=== PATIENT | male | born 1985 | race Hispanic/Latino ===

== ENCOUNTER 2018-10-10 19:00 | Emergency (ER) | payer OTHER, BC ==
[2018-10-10] MEDS: NAPROXEN 250 MG TAB PO (19:41)
[2018-10-10] MEDS: METHOCARBAMOL 750 MG TAB PO (19:41)
== END 2018-10-10 19:49 | disposition home or self-care (01) ==
LOC: M ED 19:00
DX: S76.211A Strain of adductor muscle, fascia and tendon of right thigh, initial encounter (principal); W01.0XXA Fall on same level from slipping, tripping and stumbling without subsequent striking against object, initial encounter; Y92.410 Unspecified street and highway as the place of occurrence of the external cause; J45.909 Unspecified asthma, uncomplicated; F17.210 Nicotine dependence, cigarettes, uncomplicated
CPT/HCPCS: 99282

== ENCOUNTER 2018-10-18 13:27 | Emergency (ER) | payer OTHER, BC | END 2018-10-18 14:19 | disposition home or self-care (01) | LOC: M ED 13:27 | DX: S76.111A Strain of right quadriceps muscle, fascia and tendon, initial encounter (principal); X58.XXXA Exposure to other specified factors, initial encounter; Y92.89 Other specified places as the place of occurrence of the external cause; Z79.1 Long term (current) use of non-steroidal anti-inflammatories (NSAID) | CPT/HCPCS: 99282 ==

== ENCOUNTER 2018-11-20 08:10 | Emergency (ER) | payer BC, OTHER ==
[~2018-11-20] VITALS: Ht 177.8 cm; Wt 113.6 kg
[~2018-11-20 08:10] MED LIST: ALBUTEROL INH; Cipro PO; Flagyl PO; Motrin PO; NAPR-50 PO; Percocet PO; ROBA500T PO
[2018-11-20] MEDS ORDERED: KETOROLAC 60 MG/2 ML VIAL (J1885) IM ONE (09:00)
--- NOTE | 2018-11-20 09:41 | REP ---
Right hip: Two views. History: Right groin pain after slipping on the ice. Findings: AP and frog-leg views of the right hip demonstrate smooth rounded femoral head and intact hip joint space. Periarticular soft tissues are unremarkable. No fractures seen. Right SI joint is unremarkable. Impression: Negative views of the right hip. Electronically Signed by Darryl Alexandre MD 11/20/2018 09:32 A
[2018-11-20] MEDS ORDERED: NAPR-50 PO (09:48)
[2018-11-20] MEDS ORDERED: ROBA500T PO (09:49)
[2018-11-20 09:56] VITALS: BP 142/83
== END 2018-11-20 09:59 | disposition home or self-care (01) ==
LOC: M ED 08:10
DX: S76.811A Strain of other specified muscles, fascia and tendons at thigh level, right thigh, initial encounter (principal); W00.0XXA Fall on same level due to ice and snow, initial encounter; Y92.118 Other place in children's home and orphanage as the place of occurrence of the external cause; Y99.0 Civilian activity done for income or pay
CPT/HCPCS: 73502; 96372; 99283; J1885

== ENCOUNTER → 2018-11-24 | Outpatient (REF) | payer BC ==
[2018-11-24 12:29] LABS: BASO # 0.1 10^3/uL (0.0-0.2); EOS # 0.3 10^3/uL (0.0-0.50); EOS % 4.1 % (0.0-3.0); HEMATOCRIT 50.2 % (42.0-52.0); HEMOGLOBIN 16.9 g/dl (13.5-17.5); LYMPH # 2.1 10^3/uL (1.5-4.5); LYMPH % 30.4 % (24.0-44.0); MEAN CORPUSCULAR HEMOGLOBIN 30.4 pg (27.0-33.0); MEAN CORPUSCULAR HGB CONC 33.7 g/dl (32.0-36.5); MEAN CORPUSCULAR VOLUME 90.3 fl (80.0-96.0); MONO # 0.6 10^3/uL (0.0-0.8); MONO % 8.4 % (0.0-5.0); NEUTROPHILS # 3.9 10^3/uL (1.8-7.7); NEUTROPHILS % 55.8 % (36.0-66.0); PLATELET COUNT, AUTOMATED 218 10^3/uL (150-450); RED BLOOD COUNT 5.56 10^6/uL (4.30-6.10)
[2018-11-24 12:49] LABS: CHOLESTEROL RISK RATIO 4.317 (<5); FREE T4 0.92 NG/DL (0.76-1.46); THYROID STIMULATING HORMONE 1.29 uIU/ML (0.358-3.740)
[2018-11-25 12:22] LABS: LUTEINIZING HORMONE 3.5 mIU/mL (1.5-9.3); PROLACTIN 10.5 NG/ML (2.1-17.7)
[2018-11-25 12:23] LABS: FOLLICLE STIMULATING HORMONE 3.2 mIU/mL (1.4-18.1)
[2018-11-25 14:37] LABS: TESTOSTERONE FREE (DIRECT) 14.9 pg/mL (8.7-25.1)
== END ==
LOC: M SFHCPLAZ 09:34
PROVIDERS: ATTEND Physician Assistant Medical
DX: Z13.220 Encounter for screening for lipoid disorders (principal); N52.9 Male erectile dysfunction, unspecified; M17.12 Unilateral primary osteoarthritis, left knee

== ENCOUNTER → 2019-01-07 | Outpatient (CLI) | payer BC ==
--- NOTE | 2019-01-11 17:56 | SLEEPHOME ---
DATE OF PROCEDURE: 01/07/2019 ORDERED BY: Kely Stallworth home sleep testing was performed due to concern for the obstructive sleep apnea syndrome in this patient with a history of snoring. For testing, a nocturnal T3 respiratory monitoring device was used. Continuous record was made of pulse, oxygen saturation, airflow, chest, abdominal strain and body position. 9 hours and 59 minutes of data were reviewed. There were 7 hours and 54 minutes marked as time in bed. During the interval marked time in bed, there were 355 respiratory events identified of 10 seconds in duration or greater for a respiratory event index of 44.9. The events were primarily obstructive. Baseline pulse rate 71 beats per minute, pulse rate ranged 58-98. Baseline saturation 93%, saturations were seen as low as 85%. Testing was performed predominantly in the supine position but 72 minutes were spent in the non-supine posture. IMPRESSION: Abnormal home sleep testing with repetitive respiratory events and oxygen desaturations to 85% with a respiratory event index of 44.9 is consistent with the obstructive sleep apnea syndrome. RECOMMENDATIONS: The patient should be encouraged to undergo a formal sleep evaluation and in laboratory pressure titration.
== END ==
LOC: M SLEEP HO 10:39
PROVIDERS: ATTEND Physician Assistant Medical
DX: R06.83 Snoring (principal)

== ENCOUNTER → 2019-04-16 | Outpatient (RCR) | payer BC ==
[~2019-04-16] MED LIST changes: -NAPR-50 PO; +NAPR-837 PO
== END ==
LOC: M PT 03-31 14:43
PROVIDERS: ATTEND Physician Assistant Medical
DX: M17.12 Unilateral primary osteoarthritis, left knee (principal)

== ENCOUNTER 2019-04-29 14:30 | Outpatient (RCR) | payer BC | END 2019-05-16 | LOC: M PT 14:30 | PROVIDERS: ATTEND Physician Assistant Medical | DX: M17.12 Unilateral primary osteoarthritis, left knee (principal) ==

== ENCOUNTER 2019-12-21 12:02 | Emergency (ER) | payer BC, MEDICAID ==
[~2019-12-21] VITALS: Ht 177.8 cm; Wt 123.1 kg
[2019-12-21] MEDS ORDERED: TETRACAINE 0.5% OPHTH SOLN 4ML OD ONE (13:15)
[2019-12-21] MEDS ORDERED: FLUORESCEIN OPHTH 1 MG STRIP OD ONE (13:15)
[2019-12-21] MEDS ORDERED: ERYTHROMYCIN OPHTH OINT OD ONE (13:15)
[2019-12-21] MEDS ORDERED: ERYTOIN8 OD (13:37)
[2019-12-21 14:06] VITALS: BP 129/75
== END 2019-12-21 14:08 | disposition home or self-care (01) ==
LOC: M ED 12:02
DX: S05.01XA Injury of conjunctiva and corneal abrasion without foreign body, right eye, initial encounter (principal); W51.XXXA Accidental striking against or bumped into by another person, initial encounter; Y92.89 Other specified places as the place of occurrence of the external cause; Z79.899 Other long term (current) drug therapy; Z79.1 Long term (current) use of non-steroidal anti-inflammatories (NSAID)

== ENCOUNTER → 2020-04-28 | Outpatient (REF) | payer OTHER, SELFPAY ==
[~2020-04-28] MED LIST changes: +ERYTOIN8 OD
[2020-04-28 13:36] LABS: ALBUMIN 3.6 GM/DL (3.2-5.2); ALT/SGPT 43 U/L (12-78); BILIRUBIN,TOTAL 0.6 MG/DL (0.2-1.0); BLOOD UREA NITROGEN 11 MG/DL (7-18); CALCIUM LEVEL 9.3 MG/DL (8.5-10.1); CARBON DIOXIDE LEVEL 30 MEQ/L (21-32); CHLORIDE LEVEL 106 MEQ/L (98-107); CHOLESTEROL LEVEL 231 MG/DL (<200); CREATININE FOR GFR 1.03 MG/DL (0.70-1.30); GLOMERULAR FILTRATION RATE > 60.0 (>60); GLUCOSE, FASTING 81 MG/DL (70-100); HDL CHOLESTEROL 44 MG/DL (>40); LDL CHOLESTEROL 163 MG/DL (<100); NON-HDL-C 187 MG/DL; POTASSIUM SERUM 4.1 MEQ/L (3.5-5.1); SODIUM LEVEL 138 MEQ/L (136-145); TOTAL PROTEIN 7.1 GM/DL (6.4-8.2); TRIGLYCERIDES LEVEL 119 MG/DL (<150)
== END ==
LOC: M SFHCPLAZ 11:02
PROVIDERS: ATTEND Physician Assistant Medical
DX: Z13.220 Encounter for screening for lipoid disorders (principal)

== ENCOUNTER → 2020-05-16 | Outpatient (CLI) | payer OTHER ==
--- NOTE | 2020-05-16 08:36 | REP ---
MRI LEFT KNEE WITHOUT CONTRAST: HISTORY: Primary osteoarthritis of the left knee. No known injury. No comparison radiographs. TECHNIQUE: Axial, coronal and sagittal imaging planes utilized. T1- and T2-weighted scans were obtained with without fat saturation. MRI FINDINGS: Cortical and medullary bone signal intensity are normal. There is a small joint effusion. There is a tiny slit-like Katz's cyst. There is three compartment osteoarthritic spurring consistent with mild to moderate osteoarthritis. There are areas of articular cartilage thinning and fissuring in the medial and lateral femoral condyles and in the lateral tibial plateau articular cartilage. There is severe chondromalacia centrally in the patellar articular cartilage. Extensive fissuring and thinning is seen here. Patellar and quadriceps tendons are intact. Anterior posterior cruciate ligaments are intact. There is no evidence of medial or lateral collateral ligament disruption. No medial or lateral meniscal tear is appreciated. No soft tissue mass or cyst is seen. IMPRESSION: Moderate three compartment osteoarthritis with chondromalacia most pronounced in the central patella and to a lesser extent the medial femoral condyle. Milder chondromalacia changes are seen in the lateral compartment. Small joint effusion. Electronically Signed by Darryl Alexandre MD 05/16/2020 09:25 A
== END ==
LOC: M RAD 07:07
PROVIDERS: ATTEND Physician Assistant Medical
DX: M22.42 Chondromalacia patellae, left knee (principal); M17.12 Unilateral primary osteoarthritis, left knee

== ENCOUNTER → 2020-06-16 | Outpatient (CLI) | payer OTHER ==
--- NOTE | 2020-07-28 13:27 | SLEEPHOME ---
DATE: 06/16/2020 ORDERED BY: Marvel Del Rio MD Diagnostic home sleep testing was performed due to concern for the obstructive sleep apnea syndrome. For testing, a nocturnal T3 respiratory monitoring device was used. Continuous record was made of pulse, oxygen saturation, air flow, chest and abdominal strain, and body position. There was 9 hours and 59 minutes of data reviewed. There was 4 hours and 47 minutes marked as time in bed. During the interval marked time in bed, there were 361 respiratory events identified of 10 seconds in duration or greater for a respiratory event index of 75.4. The events were obstructive and not exclusive to sleep position. Baseline pulse rate 76 beats per minute. Pulse rate ranged 68 to 99. Baseline saturation was 94%. Saturations fell to 86%. Testing was performed in both the supine and non-supine positions. IMPRESSION: Abnormal home sleep testing with repetitive respiratory events and oxygen desaturations to 86% with a respiratory event index of 75.4 is consistent with the obstructive sleep apnea syndrome. RECOMMENDATION: The patient should be encouraged to undergo a formal sleep evaluation and pressure titration. MTDD
== END ==
LOC: M SLEEP HO 11:30
PROVIDERS: ATTEND Physician Assistant
DX: G47.33 Obstructive sleep apnea (adult) (pediatric) (principal)

== ENCOUNTER → 2020-08-11 | Outpatient (CLI) | payer OTHER ==
--- NOTE | 2020-08-15 07:45 | SLEEPCENT ---
DATE: 08/11/2020 ORDERED BY: Ge Del Rio Nocturnal polysomnography was performed for the titration of pressure therapy in this patient with a clinical diagnosis of obstructive sleep apnea syndrome, confirmed by home testing, reviewing a respiratory event index of 75.4. For testing, patient was fit with a [employer] and [employer] Simplus full-face mask of medium size. There was 4 cm of water pressure applied to the circuit, and the lights were extinguished. There was 7 hours and 55 minutes of data reviewed. There was 333.5 minutes of sleep identified. Sleep latency was prolonged at 126.5 minutes. REM latency was normal at 55.5 minutes. Sleep architecture was good with 4 REM cycles. Overall sleep efficiency was 71.5%. The electrocardiogram showed a sinus rhythm with an average heart rate of 68 beats per minute. EEG showed normal waveforms for wake and sleep. Respiratory events were fully palliated with CPAP at a pressure of +9. IMPRESSION: Obstructive sleep apnea syndrome (G47.33). RECOMMENDATION: Nightly use of pressure therapy, 9 cm of water. MTDD
== END ==
LOC: M SLEEP 20:00
PROVIDERS: ATTEND Physician Assistant
DX: G47.33 Obstructive sleep apnea (adult) (pediatric) (principal)

== ENCOUNTER → 2020-10-10 | Outpatient (REF) | payer OTHER ==
[2020-10-10 15:58] LABS: ALBUMIN 3.4 GM/DL (3.2-5.2); ALT/SGPT 42 U/L (12-78); BILIRUBIN,TOTAL 0.7 MG/DL (0.2-1.0); BLOOD UREA NITROGEN 11 MG/DL (7-18); CARBON DIOXIDE LEVEL 29 MEQ/L (21-32); CHLORIDE LEVEL 105 MEQ/L (98-107); CHOLESTEROL LEVEL 218 MG/DL (<200); CHOLESTEROL RISK RATIO 5.069 (<5); CREATININE FOR GFR 1.07 MG/DL (0.70-1.30); GLOMERULAR FILTRATION RATE > 60.0 (>60); GLUCOSE, FASTING 81 MG/DL (70-100); HDL CHOLESTEROL 43 MG/DL (>40); LDL CHOLESTEROL 155 MG/DL (<100); NON-HDL-C 175 MG/DL; POTASSIUM SERUM 4.1 MEQ/L (3.5-5.1); SODIUM LEVEL 141 MEQ/L (136-145); TOTAL PROTEIN 6.9 GM/DL (6.4-8.2); TRIGLYCERIDES LEVEL 99 MG/DL (<150)
[2020-10-10 17:28] LABS: C REACTIVE PROTEIN QUANTITATIV 0.49 MG/DL (0.00-0.30)
== END ==
LOC: M SFHCPLAZ 12:33
PROVIDERS: ATTEND Physician Assistant Medical
DX: Z13.220 Encounter for screening for lipoid disorders (principal)

== ENCOUNTER → 2021-12-07 | Outpatient (CLI) | payer OTHER | LOC: M WUC 13:48 | PROVIDERS: ATTEND Nurse Practitioner Family | DX: R76.11 Nonspecific reaction to tuberculin skin test without active tuberculosis (principal) ==

== ENCOUNTER 2023-10-03 14:09 | Emergency (ER) | payer OTHER ==
[~2023-10-03] VITALS: Ht 177.8 cm; Wt 119.0 kg
[2023-10-03] MEDS ORDERED: methocarbamoL 500 MG TAB PO ONE (15:40)
[2023-10-03] MEDS ORDERED: KETOROLAC 30 MG/ML 1ML VIAL IM ONE (15:40)
[2023-10-03] MEDS ORDERED: [UNRECOGNIZED DRUG - CODE] PO (16:22)
[2023-10-03] MEDS ORDERED: IBUP-1022 PO (16:22)
[2023-10-03] MEDS ORDERED: METH-1164 PO (16:22)
[2023-10-03 16:31] VITALS: BP 155/93; TEMP 97.7; O2SAT 98
== END 2023-10-03 16:33 | disposition home or self-care (01) ==
LOC: M ED 14:09
DX: Z04.1 Encounter for examination and observation following transport accident (principal)
CPT/HCPCS: 70450; 72125; 72128; 72131; 96372; 99283; J1885